=== PATIENT | female | born 1980 | race Caucasian/White ===

== ENCOUNTER 2016-08-08 15:45 | Inpatient (IN) | payer MEDICAID, OTHER ==
[~2016-08-08] VITALS: Ht 162.6 cm; Wt 93.2 kg
[2016-08-08 16:01] VITALS: Ht 162.6 cm; Wt 93.2 kg
[2016-08-08 16:02] VITALS: BP 124/77; PULSE 84; RESP 22
[2016-08-08 16:19] LABS: ADD SCAN DIFF NO
[2016-08-08 16:24] LABS: BASOPHILS % 0.1 % (0.0-2.0); EOSINOPHILS % 0.1 % (0.0-7.0); HEMATOCRIT 33.1 % (37.0-47.0); HEMOGLOBIN 11.6 g/dl (12.0-16.0); LYMPHOCYTES # 1.8 10^3/ul (0.8-2.9); LYMPHOCYTES % 21.4 % (15.0-51.0); MEAN CORPUSCULAR HEMOGLOBIN 31.5 pg (29.0-33.0); MEAN CORPUSCULAR VOLUME 89.9 fl (82.0-101.0); MEAN PLATELET VOLUME 9.9 fl (7.4-10.4); MONOCYTE # 0.6 10^3/ul (0.3-0.9); MONOCYTES % 6.9 % (0.0-11.0); NEUTROPHILS % 71.1 % (39.0-77.0); PLATELET COUNT 208 10^3/UL (140-415); RED BLOOD COUNT 3.68 10^6/ul (4.20-5.40); RED CELL DISTRIBUTION WIDTH 12.5 % (11.5-14.5); WHITE BLOOD COUNT 8.4 10^3/ul (4.8-10.8)
[2016-08-08] MEDS: LACTATED RINGER'S 1,000 ML IV SCH ×2 (16:24→20:31)
--- NOTE | 2016-08-08 16:25 | RADRPT ---
PROCEDURE: US OB biophysical profile. CLINICAL INDICATION: decreased movements, vaginal bleeding TECHNIQUE: Multiple sonographic images of the pelvis were obtained. The images were reviewed on a PACS workstation. COMPARISON: No prior studies are available for comparison. FINDINGS: There is a single viable intrauterine gestation. Cardiac activity is present with 182 beats per min [place]. There is a transverse maternal right presentation. The placenta is anterior lateral. There is evidence of complete previa. There is a normal amount of amniotic fluid with an RAMIRO = 14.1 cm. Biophysical profile: movement 2/2 tone 2/2. breathing 2/2 RAMIRO 2/2 Total 10/08 RPTAT: AA . IMPRESSION: Normal biophysical profile. Anterior lateral placenta with complete previa. . .Bishop Sultana MD, Date Time Electronically viewed and signed by .Bishop Sultana MD, MD on 08/08/2016 16:24 .S/
--- NOTE | 2016-08-08 16:26 | RADRPT ---
PROCEDURE: US OB. CLINICAL INDICATION: Size and dates , vaginal bleeding TECHNIQUE: Multiple sonographic images of the pelvis and gravid uterus were obtained. The images were reviewed on a PACS workstation. COMPARISON: No prior studies are available for comparison. FINDINGS: The cervix is closed with a length of 3.2 cm. There is a single viable intrauterine gestation. Cardiac activity is present with 163 beats per min francisco j. There is a transverse maternal right presentation. The placenta is anterior lateral. There is evidence of complete previa. There is no evidence of plac ental abruption. There is a normal amount of amniotic fluid with an RAMIRO = 14.1 cm. Measurements were made in order to determine age. The results are as follows: BPD =7.9 cm HC =28.6 cm AC =29.2 cm FL =6.0 cm Estimated gestational age of approximately 32 weeks and 0 days based on ultrasound measurements. Clinical age: 30 weeks and 4 days. The estimated date of delivery is 10/03/16, based on ultrasound measurements. The EFW = 1954 g, 91.2%, based on LMP age. RPTAT: AA IMPRESSION: Single viable intrauterine gestation of approximately 32 weeks and 0 days based on ultrasound measu rements. Anterior lateral placenta with complete placenta previa. .Bishop Sultana MD, MD Date Time Electronically viewed and signed by .Bishop Sultana MD, MD on 08/08/2016 16:26 .S/
[2016-08-08] MEDS ORDERED: METHYLERGONOVINE 0.2 MG INJ IM PRN (16:30)
[2016-08-08] MEDS ORDERED: CARBOPROST 250 MCG INJ IM PRN (16:30)
[2016-08-08] MEDS: BETAMET NA PHOS/AC(6 MG/ML) 5ML INJ IM SCH (16:30)
[2016-08-08] MEDS ORDERED: OXYTOCIN 30 UNITS/LR 500 ML IV PRN (16:30)
[2016-08-08] MEDS ORDERED: MISOPROSTOL 200 MCG TAB PR PRN (16:30)
[2016-08-08 16:34] LABS: INR 1.03; PARTIAL THROMBOPLASTIN TIME 27.3 Sec (25.0-35.0); PROTIME 13.5 Sec (12.2-14.2); PT RATIO 1.1
[2016-08-08 16:37] LABS: ALANINE AMINOTRANSFERASE 30 IU/L (13-69); ALBUMIN/GLOBULIN RATIO 1.33; ALKALINE PHOSPHATASE 89 IU/L (42-121); ANION GAP 12 (8-16); ASPARTATE AMINO TRANSFERASE 21 IU/L (15-46); BILIRUBIN,INDIRECT 0.2 mg/dl (0-1.1); BILIRUBIN,TOTAL 0.2 mg/dl (0.2-1.3); BLOOD UREA NITROGEN 10 mg/dl (7-20); CALCIUM 9.4 mg/dl (8.4-10.2); CARBON DIOXIDE 23 mmol/L (21-31); CHLORIDE 108 mmol/L (97-110); CREATININE 0.46 mg/dl (0.44-1.00); GLUCOSE 73 mg/dl (70-220); SODIUM 139 mmol/L (135-144)
[2016-08-08] MEDS ORDERED: ENOX40DI14 SC (17:03)
[2016-08-08] MEDS ORDERED: PREN1COM10 PO (17:29)
[2016-08-08] MEDS ORDERED: CHOL400C PO (17:29)
[2016-08-08] MEDS ORDERED: LACTATED RINGER'S 1,000 ML IV PRN (18:00)
--- NOTE | 2016-08-08 18:11 | CONS ---
Date/Time of Note Date/Time of Note DATE: 08/08/16 TIME: 17:59 Consultation Date/Type/Reason Admit Date/Time Aug 08, 2016 at 16:30 Triage consult Reason for Consultation This patient is a 36 years old 8 para 2 5 who by her who was brought by paramedics to the hospital due to fairly severe vaginal bleeding She has history of repeat loss. She lost 5 of her at first or second trimester all over and intrauterine demise and 1 of 20 weeks gestation This happened by assistance from in vitro fertilization She brought to the labor delivery room complaining of vaginal bleeding since 3: 00 this afternoon her admission time was about 5:00 she was placed on Lovenox 40 units ,She received this medication yesterday blood thinner medication due to her previous intrauterine in loss Upon admission she was examined there was blood clot inside the vagina no part was palpated and ultrasound revealed placenta previa . First dose of betamethasone was given to the patient On reviewing the lab test her hemoglobin was 11.6 hematocrit 33.1 The rest of the test were normal platelet was 208,000 her PT INR PTT were all within normal limits. On ultrasound study the cervix was completely closed with the cervical length of 3.2 cm . There was a single viable intrauterine gestation with cardiac activity 163 bpm in transverse position placenta was anterior lateral no evidence of complete previa no evidence of abruption of placenta. Amniotic fluid was normal the RAMIRO was 14.1 cm on the measurement of the uterus . baby was around 32 weeks . estimated date of confinement was placed at 10/03/2016 Estimated weight was 1955 g 19.2 percentile without LMP Laboratory Tests Test 08/08/16 16:00 08/08/16 16:25 White Blood Count 8.410^3/ul Red Blood Count 3.6810^6/ul Hemoglobin 11.6g/dl Hematocrit 33.1% Mean Corpuscular Volume 89.9fl Mean Corpuscular Hemoglobin 31.5pg Mean Corpuscular Hemoglobin Concent 35.0g/dl Red Cell Distribution Width 12.5% Platelet Count 22720^3/UL Mean Platelet Volume 9.9fl Neutrophils % 71.1% Lymphocytes % 21.4% Monocytes % 6.9% Eosinophils % 0.1% Basophils % 0.1% Nucleated Red Blood Cells % 0.0/100WBC Neutrophils # 6.010^3/ul Lymphocytes # 1.810^3/ul Monocytes # 0.610^3/ul Eosinophils # 0.010^3/ul Basophils # 0.010^3/ul Nucleated Red Blood Cells # 0.010^3/ul Prothrombin Time 13.5Sec Prothrombin Time Ratio 1.1 INR International Normalized Ratio 1.03 Activated Partial Thromboplast Time 27.3Sec Sodium Level 139mmol/L Potassium Level 4.0mmol/L Chloride Level 108mmol/L Carbon Dioxide Level 23mmol/L Anion Gap 12 Blood Urea Nitrogen 10mg/dl Creatinine 0.46mg/dl Glucose Level 73mg/dl Calcium Level 9.4mg/dl Total Bilirubin 0.2mg/dl Direct Bilirubin 0.00mg/dl Indirect Bilirubin 0.2mg/dl Aspartate Amino Transf (AST/SGOT) 21IU/L Alanine Aminotransferase (ALT/SGPT) 30IU/L Alkaline Phosphatase 89IU/L Total Protein 7.0g/dl Albumin 4.0g/dl Globulin 3.00g/dl Albumin/Globulin Ratio 1.33 Hepatitis B Surface Antigen NEGATIVE Fibrinogen 427.0mg/dl Plasma Fibrin Degradation Products Pending Current Medications Medications (Trade) Dose Ordered Sig/Eladio Route PRN Reason Start Time Stop Time Status Last Admin Dose Admin Lactated Ringer's 1,000 ml @ 125 mls/hr Q8H IV 08/08/16 16:05 08/08/16 16:24 125 MLS/HR Lactated Ringer's 1,000 ml @ 2,000 mls/hr Q30M PRN IV PRE-EPIDURAL BOLUS 08/08/16 18:00 Oxytocin/Lactated Ringer's 500 ml @ 0 mls/hr ONCE PRN IV For Hemorrhage Management 08/08/16 16:30 Methylergonovine Maleate (Methergine) 0.2 mg ONCE PRN IM VAGINAL BLEEDING 08/08/16 16:30 Carboprost Tromethamine (Hemabate) 250 mcg ONCE PRN IM VAGINAL BLEEDING 08/08/16 16:30 Misoprostol (Cytotec) 1,000 mcg ONCE PRN AR VAGINAL BLEEDING 08/08/16 16:30 Betamethasone Acet/Betameth SodPhos (Celestone Soluspan) 12 mg Q24H IM 08/08/16 16:30 08/09/16 16:31 08/08/16 16:30 12 MG Constitutional: No chills, No diaphoresis, No disoriented, No febrile, No improved, No no complaints, No other, No poor po, No requiring IVF, No requiring O2 Eyes: No discharge, No no complaints, No other, No pain, No redness, No visual change ENT: No bleeding, No congestion, No discharge, No dysphagia, No no complaints, No other, No pain, No sore throat Respiratory: No cough, No no complaints, No other, No pain, No pleuritic pain, No shortness of breath, No sputum, No wheezing Cardiovascular: other (No tachycardia), No chest pain, No edema, No lightheadedness, No no complaints, No orthopenea , No palpitations, No paroxysmal nocturnal dyspnea Gastrointestinal: other (No nausea vomiting), No blood, No constipation, No decreased appetite, No diarrhea, No flatus, No nausea, No no complaints, No pain, No passing stool, No vomiting Genitourinary: other (As I mentioned when she arrived she was having fairly heavy vaginal bleeding with blood clots cervix was closed no real contractions) Musculoskeletal: No back pain, No bone/joint pain, No neck pain, No no complaints, No restricted range of motion, No swelling Skin: other (Not pale or sweaty), No bruising, No erythema, No laceration, No no complaints, No pruritis, No rash, No skin lesions Neurologic: other (Normal knee-jerk), No confusion, No dizziness, No focal-weakness, No headache, No no complaints , No seizure, No syncope Endocrine: No dry skin, No no complaints, No other, No polydypsia, No polyuria , No temp intolerance Additional Comments With these finding the diagnosis of a intrauterine of 31 weeks with placenta previa and vaginal bleeding was made A dose of betamethasone was given IV was a started 2 unit of packed cell was prepared I should mention that patient was on Lovenox apparently to prevent loss. Now about an hour after her arrival ,she is a stable, vaginal bleeding is under fairly good control. The plan is to keep her in the hospital and to give the second dose of betamethasone tomorrow. Hopefully she can continue her until near term or at least 35-36 weeks Social History Smoking Status: Never smoker Exam/Review of Systems Vital Signs Vitals Vital Signs Date Time Temp Pulse Resp B/P Pulse Ox O2 Delivery O2 Flow Rate FiO2 08/08/16 16:02 98.1 84 22 124/77 Room Air Results Result Diagram: 08/08/16 1600 08/08/16 1600 Results 24 hrs Laboratory Tests Test 08/08/16 16:00 08/08/16 16:25 White Blood Count 8.4 Red Blood Count 3.68 L Hemoglobin 11.6 L Hematocrit 33.1 L Mean Corpuscular Volume 89.9 Mean Corpuscular Hemoglobin 31.5 Mean Corpuscular Hemoglobin Concent 35.0 Red Cell Distribution Width 12.5 Platelet Count 208 Mean Platelet Volume 9.9 Neutrophils % 71.1 Lymphocytes % 21.4 Monocytes % 6.9 Eosinophils % 0.1 Basophils % 0.1 Nucleated Red Blood Cells % 0.0 Neutrophils # 6.0 Lymphocytes # 1.8 Monocytes # 0.6 Eosinophils # 0.0 Basophils # 0.0 Nucleated Red Blood Cells # 0.0 Prothrombin Time 13.5 Prothrombin Time Ratio 1.1 INR International Normalized Ratio 1.03 Activated Partial Thromboplast Time 27.3 Sodium Level 139 Potassium Level 4.0 Chloride Level 108 Carbon Dioxide Level 23 Anion Gap 12 Blood Urea Nitrogen 10 Creatinine 0.46 Glucose Level 73 Calcium Level 9.4 Total Bilirubin 0.2 Direct Bilirubin 0.00 Indirect Bilirubin 0.2 Aspartate Amino Transf (AST/SGOT) 21 Alanine Aminotransferase (ALT/SGPT) 30 Alkaline Phosphatase 89 Total Protein 7.0 Albumin 4.0 Globulin 3.00 Albumin/Globulin Ratio 1.33 Hepatitis B Surface Antigen NEGATIVE Fibrinogen 427.0 Plasma Fibrin Degradation Products Pending Medications Medications Current Medications Lactated Ringer's 1,000 ml @ 125 mls/hr Q8H IV Last administered on 08/08/16t 16:24; Admin Dose 125 MLS/HR; Start 08/08/16 at 16:05 Lactated Ringer's 1,000 ml @ 2,000 mls/hr Q30M PRN IV PRE-EPIDURAL BOLUS; Start 08/08/16 at 18:00 Oxytocin/Lactated Ringer's 500 ml @ 0 mls/hr ONCE PRN IV For Hemorrhage Management; Start 08/08/16 at 16:30 Methylergonovine Maleate (Methergine) 0.2 mg ONCE PRN IM VAGINAL BLEEDING; Start 08/08/16 at 16:30 Carboprost Tromethamine (Hemabate) 250 mcg ONCE PRN IM VAGINAL BLEEDING; Start 08/08/16 at 16:30 Misoprostol (Cytotec) 1,000 mcg ONCE PRN AR VAGINAL BLEEDING; Start 08/08/16 at 16:30 Betamethasone Acet/Betameth SodPhos (Celestone Soluspan) 12 mg Q24H IM Last administered on 08/08/16t 16:30; Admin Dose 12 MG; Start 08/08/16 at 16:30; Stop 08/09/16 at 16:31 BLAKE CARRION MD Aug 08, 2016 18:11
[2016-08-08] MEDS ORDERED: MAGNESIUM SULFATE 4 GM/100 ML 100 ML ONE (18:37)
[2016-08-08 18:47] LABS: FIBRIN SPLIT PRODUCT <10 ug/ml (<10)
[2016-08-08] MEDS ORDERED: MAGNESIUM SULFATE 4 GM/100 ML 100 ML IV SCH (19:00)
[2016-08-08] MEDS ORDERED: CA GLUCONATE (GM) 10% 10ML INJ IV PRN (19:00)
[2016-08-08] MEDS: MAGNESIUM SULFATE 20 GM/500 ML 500 ML IV SCH (19:04)
[2016-08-09] MEDS ORDERED: ACETAMINOPHEN 325 MG TAB PO PRN (02:00)
[2016-08-09] MEDS: MAGNESIUM SULFATE 20 GM/500 ML 500 ML IV SCH ×2 (05:54→18:51)
[2016-08-09] MEDS: LACTATED RINGER'S 1,000 ML IV SCH ×2 (09:41→19:36)
--- NOTE | 2016-08-09 11:34 | QN ---
Documentation Comment 30+wks GA with Complete Previa admitted with CTXs and Complete Previa.Patient had some spotting patient insists to be transferred to in [facility] ([facility]) Currently No Vb Some brownish discharge O Mg NS t reassuring [place] No CTXs Reflexes WNL --->Called and she accepts the transfer --->patient is stable ,A perinatalogy consult is requested for possible discharge ---->[facility] L&D informed ---->close Observation CARLOS MCARTHUR M.D. Aug 09, 2016 11:34
--- NOTE | 2016-08-09 12:30 | CONS ---
DATE OF ADMISSION: 08/08/2016 DATE OF CONSULTATION: 08/09/2016 TYPE OF CONSULTATION: NICU I was asked to perform a consult on Ms. Waldron who is a 36-year-old G8, P3 female admit serg through the emergency room with onset of vaginal bleeding. Her gestational age is 30-4/7 weeks. Mom has a history of multiple miscarriages and reportedly has a clotting disorder for which she is being treated with Lovenox. She was admitted to [facility] on 08/08/[address] previa and vaginal bleeding. She is now receiving betamethasone for augmentation of andres ng maturity, as well as magnesium sulfate. I spoke at length with mom regarding complications associated with delivery at 30-4/7 weeks. Discussed survival data. Discussed morbidities including but not limited to risk of respiratory d istress syndrome requiring chronic ventilator support and oxygen, apnea of prematurity, possibility of infections and necrotizing enterocolitis. Discussed benefits provided by breast milk in preventi on of some of these complications. I also discussed risk for long-term neurological morbidities including but not limited to possible c erebral palsy, attention-deficit disorder, learning disabilities, as well as autism, which are highe r in infants born prematurely. Mom verbalized understanding of our discussion. All questions have been answered at this point. Dictated By: SUKHWINDER GARCIA MD, AM/MARY Conf#: [id number] DID#: [id number]
--- NOTE | 2016-08-09 13:01 | RADRPT ---
PROCEDURE: US OB biophysical profile. CLINICAL INDICATION: evaluation TECHNIQUE: Multiple sonographic images of the pelvis were obtained. The images were reviewed on a PACS workstation. COMPARISON: Obstetrical ultrasound from 08/08/2016 FINDINGS: There is a single viable intrauterine gestation. Cardiac activity is present with 139 beats per min francisco j. There is a transverse presentation to maternal left. The placenta is anterior and left lateral in location. There is a hypoechoic triangular lesion at the superficial aspect of the placenta measuring 3.8 x 2.2 cm without vascular flow which is likely a focal abruption. There is a complete placenta previa. There is a normal amount of amniotic fluid with an RAMIRO = 11.6 cm. Biophysical profile: movement 2/2 tone 2/2. breathing 2/2 RAMIRO 2/2 Total 10/08 RPTAT: AA . IMPRESSION: Normal biophysical profile. 3.8 cm likely focal abruption, as above. Complete placenta previa. Physician Delma Date Time Electronically viewed and signed by Physician Delma on 08/09/2016 13:00 /
--- NOTE | 2016-08-09 14:51 | PERINOTE ---
Date/Time of Note Date/Time of Note DATE: 08/09/16 TIME: 14:00 Assessment/Recommendations Other Assessments Placenta previa with bleeding, currently abated. I reviewed the images and would interpret them as an anterior placenta previa with a blood clot posteriorly. 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 IVF Patient desires transfer to another hospital Recommendations: I feel that this patient is stable for transfer at this time. We have not administered lovenox today. If there is no accepted indication for lovenox, I would consider discontinuing it in the context of a placenta previa with bleeding. OB Subjective Free Text/Dictaton Patient admitted for vaginal bleeding and mild uterine contractions. Noted to have a marginal placenta previa. Patient now requesting transfer to [facility] to be with her regular doctor. Not bleeding at present. Past history remarkable for multiple prior losses. The patient is currently taking lovenox 40mg daily. She states that the use of heparin was empiric and not based on specific diagnosis. HD# 2 IUP @ 30W5D Current Medications Current Medications Lactated Ringer's 1,000 ml @ 125 mls/hr Q8H IV Last administered on 08/09/16 09:41; Admin Dose 125 MLS/HR; Start 08/08/16 at 16:05 Lactated Ringer's 1,000 ml @ 2,000 mls/hr Q30M PRN IV PRE-EPIDURAL BOLUS; Start 08/08/16 at 18:00 Oxytocin/Lactated Ringer's 500 ml @ 0 mls/hr ONCE PRN IV For Hemorrhage Management; Start 08/08/16 at 16:30 Methylergonovine Maleate (Methergine) 0.2 mg ONCE PRN IM VAGINAL BLEEDING; Start 08/08/16 at 16:30 Carboprost Tromethamine (Hemabate) 250 mcg ONCE PRN IM VAGINAL BLEEDING; Start 08/08/16 at 16:30 Misoprostol (Cytotec) 1,000 mcg ONCE PRN MT VAGINAL BLEEDING; Start 08/08/16 at 16:30 Betamethasone Acet/Betameth SodPhos 12 mg 12 mg Q24H IM Last administered on 16:30; Admin Dose 12 MG; Start 08/08/16 at 16:30; Stop 08/09/16 at 16:31 Magnesium Sulfate (Magnesium Sulfate 20 Gm/500 ml) 500 ml @ 50 mls/hr Q10H IV Last administered on 08/09/16t 05:54; Admin Dose 50 MLS/HR; Start 08/08/16 at 18: 32 Calcium Gluconate (Ca Gluc) 1 gm ONCE PRN IV FOR MAGNESIUM TOXICITY; Start at 19:00 Acetaminophen (Tylenol Tab) 650 mg Q6H PRN PO PAIN AND OR ELEVATED TEMP; Start 08/09/16 at 02:00 Past Medical History Medical History: no pertinent history Surgical History: no surgical history [employer] History: other (Recurrent loss) Para: 2 : 8 LMP (Females 10-50): Family History Significant Family History: no pertinent family hx OB Admission Exam Physical Exam Vitals: Vital Signs Date Time Temp Pulse Resp B/P Pulse Ox O2 Delivery O2 Flow Rate FiO2 08/08/16 16:02 98.1 84 22 124/77 Room Air 08/09/16 96 113/64 Heart: Rhythm Normal Lungs: Clear Abdomen: WNL Reflexes: Normal Heart Rate: 130's Accelerations: Accelerations Present Decelerations: No Decelerations Varibility: Moderate Contractions on Admission: >10 Minutes Apart Last 72 hours Lab Results CBC & BMP 08/08/16 16:00 Liver Function Test 08/08/16 16:00 Alanine Aminotransferase (ALT/SGPT) 30 Albumin 4.0 Alkaline Phosphatase 89 Aspartate Amino Transf (AST/SGOT) 21 Direct Bilirubin 0.00 Total Protein 7.0 Magnesium Level Test 08/09/16 00:30 08/09/16 06:08 08/09/16 12:00 Magnesium Level 4.3 H 4.4 H 4.7 H Copies To: CC: CARLOS MCARTHUR M.D., MARIE H MD Aug 09, 2016 14:10
[2016-08-09] MEDS: BETAMET NA PHOS/AC(6 MG/ML) 5ML INJ IM SCH (16:33)
== END 2016-08-09 19:22 | disposition short-term general hospital (02) | DRG 782 ==
LOC: OBT 15:45 → L-D 15:46 → OBT 16:29 → L-D 16:30
DX: O46.93 Antepartum hemorrhage, unspecified, third trimester (principal); Z3A.30 30 weeks gestation of pregnancy
CPT/HCPCS: 76815; 76818; 80053; 83735; 85025; 85362; 85384; 85610; 85730; 86592; 86850; 86900; 86901; 86920; 87340; J0702; J3475; J7120